=== PATIENT | female | born 1985 | race Caucasian/White ===

== ENCOUNTER → 2017-09-02 11:10 | Outpatient (CLI) | payer SELFPAY ==
[2017-09-02 12:15] LABS: Add Manual Diff / Slide Review NO; Basophils Percent Auto 0.8 % (0-2); Eosinophils Percent Auto 2.4 % (2-4); Hematocrit 37.5 % (36-46); Hemoglobin 12.8 g/dL (12.0-16.0); Lymphocytes Percent Auto 43.8 % (25-40); Mean Corpuscular HGB Conc 34.2 % (30-36); Mean Corpuscular Hemoglobin 29.3 PG (26-34); Mean Corpuscular Volume 85.5 fL (80-100); Neutrophils Absolute Auto 3400 /uL (3000-5900); Platelet Count 226 X10^3/uL (150-400); Red Blood Cell Count 4.38 X10^6/uL (4.0-5.2); Red Cell Distribution Width 13.6 % (11.6-14.8); White Blood Cell Count 7.1 X10^3/uL (4.5-11.0)
[2017-09-09 20:56] LABS: HCG Quantitative /Beta subunit < 2.39 mIU/mL
== END ==
PROVIDERS: Visit Provider Obstetrics & Gynecology
DX: N92.0 Excessive and frequent menstruation with regular cycle (principal)
CPT/HCPCS: 36415; 84702; 85025

== ENCOUNTER → 2017-09-23 13:14 | Outpatient (CLI) | payer SELFPAY ==
[2017-09-25 17:10] LABS: Progesterone 5.6 ng/mL
== END ==
PROVIDERS: Visit Provider Obstetrics & Gynecology
DX: N97.0 Female infertility associated with anovulation (principal)
CPT/HCPCS: 36415; 84144